=== PATIENT | female | born 1995 | race African-American/Black ===

== ENCOUNTER 2021-04-09 10:50 | Day surgery (SDC) | payer OTHER ==
[2021-04-09] MEDS ORDERED: hydrALAZINE 20 MG/ML VIAL SLOW IVP PRN (11:49)
[2021-04-09 12:32] LABS: #Eosinphils 0.3 10x3/uL (0.0-0.5); #Monocytes 1.1 10x3/uL (0.0-1.1); #Neutrophils 9.2 10x3/uL (1.5-8.4); %Basophils 0.3 % (0.0-2.0); %Eosinophils 2.6 % (0.0-6.0); %Lymphocytes 15.3 % (18.0-47.0); %Monocytes 8.3 % (0.0-10.0); %Neutrophils 72.9 % (40.0-75.0); Mean Corpuscular HGB CONC 31.7 g/dL (32.0-36.0); Mean Corpuscular Hemoglobin 25.6 pg (27.0-33.0); Mean Corpuscular Volume 80.6 fl (81.6-98.3); Mean Platelet Volume 9.5 fl (7.4-10.4); Platelet Count 302 10x3/uL (150-450); RBC Distribution Width 14.6 % (11.5-14.5); Red Blood Cell (RBC) Count 3.91 10x6/uL (3.90-5.03); White Blood Cell (WBC) Count 12.7 10x3/uL (3.5-10.5)
[2021-04-09 12:50] LABS: ALT (SGPT) 11 U/L (8-55); AST (SGOT) 17 U/L (5-34); Albumin 3.3 g/dL (3.5-5.0); Alkaline Phosphatase 159 U/L (40-110); Anion Gap 11 mmol/L (10-20); BUN (Urea Nitrogen) 7 mg/dL (7.0-18.7); Bilirubin, Total 0.2 mg/dL (0.2-1.2); Calc. Creatinine Clearance 0 mL/min (70-130); Calcium 8.6 mg/dL (7.8-10.44); Carbon Dioxide 21 mmol/L (22-29); Chloride 108 mmol/L (98-107); Globulin 3.1 g/dL (2.4-3.5); Glucose 85 mg/dL (70-105); Potassium 3.9 mmol/L (3.5-5.1); Protein, Total 6.4 g/dL (6.0-8.3); Sodium 136 mmol/L (136-145)
[2021-04-09 14:42] LABS: Creatinine, Urine 137.78 mg/dL (47-110)
== END 2021-04-09 15:41 | disposition home or self-care (01) ==
LOC: CSHLD/OP 10:50
PROVIDERS: ATTEND Student in an Organized Health Care Education/Training Program
DX: O13.3 Gestational [pregnancy-induced] hypertension without significant proteinuria, third trimester (principal); O34.211 Maternal care for low transverse scar from previous cesarean delivery; Z3A.34 34 weeks gestation of pregnancy
CPT/HCPCS: 36415; 80053; 82570; 84156; 85025; 99283

== ENCOUNTER 2021-05-07 09:42 | Outpatient (CLI) | payer OTHER ==
[2021-05-08 11:00] LABS: SARS-CoV-2 PCR by NAA Not Detected (NotDetected)
== END 2021-05-07 09:43 | disposition home or self-care (01) ==
LOC: CSHLAB 09:42
PROVIDERS: ATTEND Student in an Organized Health Care Education/Training Program
DX: Z20.822 Contact with and (suspected) exposure to COVID-19 (principal)
CPT/HCPCS: U0003; U0005

== ENCOUNTER 2021-05-09 10:09 | Inpatient (IN) | payer OTHER ==
[2021-05-09] MEDS ORDERED: CEFAZOLIN 2 GM in Premix Bag 1 BAG IVPB SCH ×2 (10:56→11:15)
[2021-05-09] MEDS ORDERED: Promethazine HCl 25 MG/ML VIAL IM PRN ×2 (10:56→13:07)
[2021-05-09] MEDS ORDERED: Ondansetron PF 4 MG/2 ML Vial IVP PRN ×2 (10:56→13:07)
[2021-05-09] MEDS ORDERED: hydrALAZINE 20 MG/ML VIAL SLOW IVP PRN ×3 (10:56→15:56)
[2021-05-09] MEDS ORDERED: Famotidine/PF 20 mg/2ml Vial SLOW IVP PRN (10:56)
[2021-05-09] MEDS ORDERED: Bicitra 30 ML UDCUP PO PRN (10:56)
[2021-05-09] MEDS ORDERED: Lactated Ringer's 1,000 ML IV SCH (10:56)
[2021-05-09 11:08] LABS: Hemoglobin 11.2 g/dL (12.0-15.5); Mean Corpuscular HGB CONC 31.8 g/dL (32.0-36.0); Mean Corpuscular Hemoglobin 25.6 pg (27.0-33.0); Mean Corpuscular Volume 80.5 fl (81.6-98.3); Mean Platelet Volume 9.8 fl (7.4-10.4); Platelet Count 288 10x3/uL (150-450); RBC Distribution Width 15.6 % (11.5-14.5); Red Blood Cell (RBC) Count 4.37 10x6/uL (3.90-5.03); White Blood Cell (WBC) Count 10.2 10x3/uL (3.5-10.5)
[2021-05-09] MEDS ORDERED: Morphine PF 10 MG/10 ML VIAL ONE (11:08)
[2021-05-09] MEDS ORDERED: Phenylephrine 40 MG/NS 250 ML 250 ML ONE (11:09)
[2021-05-09] MEDS ORDERED: Oxytocin 10 UNITS/ML VIAL ONE ×2 (11:09→12:36)
[2021-05-09 11:24] LABS: ALT (SGPT) 14 U/L (8-55); AST (SGOT) 25 U/L (5-34); Albumin 3.6 g/dL (3.5-5.0); Alkaline Phosphatase 232 U/L (40-110); Anion Gap 14 mmol/L (10-20); BUN (Urea Nitrogen) 5 mg/dL (7.0-18.7); Bilirubin, Total 0.5 mg/dL (0.2-1.2); Calc. Creatinine Clearance 0 mL/min (70-130); Calcium 8.8 mg/dL (7.8-10.44); Carbon Dioxide 19 mmol/L (22-29); Chloride 110 mmol/L (98-107); Globulin 3.2 g/dL (2.4-3.5); Glucose 91 mg/dL (70-105); Potassium 3.6 mmol/L (3.5-5.1); Protein, Total 6.8 g/dL (6.0-8.3); Sodium 139 mmol/L (136-145)
[2021-05-09 11:37] VITALS: BMI 37.4
[2021-05-09 11:42] LABS: Hep B Surf Ag Non-Reactive S/CO (NonReactive)
[2021-05-09 11:43] LABS: Syphilis Antibody Nonreactive (Nonreactive); Syphilis Antibody Index 0.07 S/CO (<1.00 Non-Reactive)
[2021-05-09 11:53] LABS: HBSAg Index 0.19 S/CO (0-0.99)
[2021-05-09] MEDS ORDERED: Ketorolac Tromethamine 30 MG/ML VIAL ONE (12:56)
[2021-05-09] MEDS ORDERED: Naloxone HCl 0.4 mg/ml Vial IVP PRN ×2 (13:07)
[2021-05-09] MEDS ORDERED: Ketorolac Tromethamine 30 MG/ML VIAL IVP PRN (13:07)
[2021-05-09] MEDS ORDERED: Promethazine HCl 25 MG SUPP PR PRN (13:07)
[2021-05-09] MEDS ORDERED: diphenhydrAMINE 50 MG/ML VIAL IVP PRN (13:07)
[2021-05-09] MEDS ORDERED: Naloxone HCl 0.4 mg/ml Vial IV PRN (13:07)
[2021-05-09] MEDS ORDERED: Ondansetron HCl/PF 4 MG/2 ML Vial IVP PRN (13:07)
[2021-05-09] MEDS ORDERED: Meperidine HCl/PF 25 MG/ML VIAL SLOW IVP PRN (13:07)
[2021-05-09] MEDS ORDERED: Hydrocerin (Eucerin) Cream 120 gm Jar TOP PRN (13:07)
[2021-05-09] MEDS ORDERED: HYDROmorphone 2 MG/ML VIAL SLOW IVP PRN (13:07)
[2021-05-09] MEDS ORDERED: Fentanyl 100 MCG/2 ML VIAL SLOW IVP PRN (13:07)
[2021-05-09] MEDS ORDERED: Ketorolac Tromethamine 30 MG/ML VIAL IVP SCH (13:15)
[2021-05-09] MEDS ORDERED: Communication Order-Pharmacy FS SCH (13:15)
[2021-05-09] MEDS ORDERED: NS w/ Oxytocin 30 units 500 ML IV SCH (15:56)
[2021-05-09] MEDS ORDERED: Lanolin Ointment 7 GM TUBE TOP PRN (15:56)
[2021-05-09] MEDS ORDERED: Methylergonovine 0.2 MG/ML VIAL IM PRN (15:56)
[2021-05-09] MEDS ORDERED: Misoprostol 200 MCG TAB PR PRN (15:56)
[2021-05-09] MEDS ORDERED: Boostrix 0.5 ML (Tdap) VIAL IM ONE (15:56)
[2021-05-09] MEDS ORDERED: Acetaminophen 325 MG TAB PO PRN (15:56)
[2021-05-09] MEDS: Ferrous Sulfate 325 MG TAB PO SCH (20:22)
[2021-05-10] MEDS ORDERED: HYDROcodone/Acetaminophen 5/325 mg Tablet PO PRN (01:15)
[2021-05-10 04:45] LABS: Hemoglobin 9.6 g/dL (12.0-15.5); Mean Corpuscular HGB CONC 31.2 g/dL (32.0-36.0); Mean Corpuscular Hemoglobin 25.6 pg (27.0-33.0); Mean Corpuscular Volume 82.1 fl (81.6-98.3); Mean Platelet Volume 9.9 fl (7.4-10.4); Platelet Count 225 10x3/uL (150-450); RBC Distribution Width 15.6 % (11.5-14.5); Red Blood Cell (RBC) Count 3.75 10x6/uL (3.90-5.03); White Blood Cell (WBC) Count 10.9 10x3/uL (3.5-10.5)
[2021-05-10] MEDS: Prenatal Vitamin 1 TAB PO SCH (08:08)
[2021-05-10] MEDS: Ferrous Sulfate 325 MG TAB PO SCH ×2 (08:08→21:32)
[2021-05-10] MEDS: Ibuprofen 800 MG TAB PO SCH ×2 (13:38→21:32)
[2021-05-10] MEDS ORDERED: Simethicone Chewable 80 MG TAB PO PRN ×2 (13:55→14:45)
[2021-05-11] MEDS: Ibuprofen 800 MG TAB PO SCH (05:37)
[2021-05-11 07:53] VITALS: BP 121/82; TEMP 99.3
[2021-05-11] MEDS: Ferrous Sulfate 325 MG TAB PO SCH (08:19)
[2021-05-11] MEDS: Prenatal Vitamin 1 TAB PO SCH (08:19)
== END 2021-05-11 11:35 | disposition home or self-care (01) | DRG 788 ==
LOC: CSHLD 10:09 → CSHPP 15:40
PROVIDERS: ADMIT Student in an Organized Health Care Education/Training Program; ATTEND Student in an Organized Health Care Education/Training Program
PROC: 10D00Z1 Extraction of Products of Conception, Low, Open Approach (ICD-10-PCS; principal; 2021-05-09)
DX: O34.211 Maternal care for low transverse scar from previous cesarean delivery (principal); Z3A.39 39 weeks gestation of pregnancy; Z37.0 Single live birth
CPT/HCPCS: 36415; 51702; 80053; 85027; 86780; 86850; 86900; 86901; 87340; 90384; 96372; J0690; J1885; J2274; J2405; J2590; J7120